=== PATIENT | male | born 1955 | race Caucasian/White ===

== ENCOUNTER 2019-04-14 10:45 | Outpatient (CLI) | payer BC | END 2019-04-14 23:59 | disposition home or self-care (01) | LOC: LAB 10:45 | PROVIDERS: ATTEND Thoracic Surgery (Cardiothoracic Vascular Surgery) | DX: I10 Essential (primary) hypertension (principal); K58.9 Irritable bowel syndrome, unspecified; G47.33 Obstructive sleep apnea (adult) (pediatric); F44.9 Dissociative and conversion disorder, unspecified | CPT/HCPCS: 36415 ==

== ENCOUNTER 2019-10-18 08:14 | Outpatient (CLI) | payer BC | END 2019-10-18 23:59 | disposition home or self-care (01) | LOC: LAB SPEC 08:14 | PROVIDERS: ATTEND Thoracic Surgery (Cardiothoracic Vascular Surgery) | DX: E78.00 Pure hypercholesterolemia, unspecified (principal); I10 Essential (primary) hypertension; K75.9 Inflammatory liver disease, unspecified; E79.0 Hyperuricemia without signs of inflammatory arthritis and tophaceous disease; K58.9 Irritable bowel syndrome, unspecified; M32.9 Systemic lupus erythematosus, unspecified; G47.30 Sleep apnea, unspecified; K59.9 Functional intestinal disorder, unspecified; R14.0 Abdominal distension (gaseous) | CPT/HCPCS: 36415 ==